=== PATIENT | female | born 1990 | race African-American/Black ===

== ENCOUNTER 2023-10-05 12:36 | Outpatient (CLI) | payer OTHER, SELFPAY ==
--- NOTE | ~2023-10-05 | US_ITS ---
EXAMINATION: US OB follow up DATE: 10/05/2023 13:19 INDICATION: Encounter for supervision of normal during third trimester. Assess amniotic flu id index and assess growth TECHNIQUE: Real-time ultrasound of the pelvis was performed. The interpreting radiologist was not pre sent for the study. COMPARISON: 06/21/2023 FINDINGS: There is a single living fetus in vertex presentation. The placenta is normal. heart rate is 1 30 beats per minute (bpm). The amniotic fluid index is 12.1 cm, which is normal. The following biometric data were obtained: BPD: 8.7 cm -> 35 weeks 0 days Head circumference: 31.2 cm -> 35 weeks 0 days Abdominal circumference: 30.8 cm -> 34 weeks 5 days Femur length: 6.9 cm -> 35 weeks 2 days These measurements are concordant. Head circumference to abdominal circumference ratio: 1.01 (normal range 0.93-1.11). Estimated weight: 2553 g (+/-) 382 g or 5 lbs. 10 oz. (+/-) 14 oz. IMPRESSION: 1. Single living fetus in vertex presentation with heart rate of 130 bpm. 2. Normal amniotic fluid index of 12.1 cm. 3. Estimated weight is 38th percentile by Hadlock criteria when 11/17/2023 is used as the estima nasra date of delivery (CRESCENCIO). Please correlate with clinical information or earlier ultrasounds for mos t accurate CRESCENCIO. Reviewed, dictated and finalized at location A. L [employer] IMPRESSION: 1. Single living fetus in vertex presentation with heart rate of 130 bpm. 2. Normal amniotic fluid index of 12.1 cm. 3. Estimated weight is 38th percentile by Hadlock criteria when 11/17/2023 is used as the estimated date of delivery (CRESCENCIO). Please correlate with clinica l information or earlier ultrasounds for most accurate CRESCENCIO.
== END 2023-10-05 12:37 | disposition home or self-care (01) ==
LOC: ANHIMG 12:39
PROVIDERS: Visit Provider Student in an Organized Health Care Education/Training Program
DX: Z34.90 Encounter for supervision of normal pregnancy, unspecified, unspecified trimester (principal); Z3A.00 Weeks of gestation of pregnancy not specified
CPT/HCPCS: 76816

== ENCOUNTER 2023-11-09 18:57 | Inpatient (IN) | payer OTHER, SELFPAY ==
[2023-11-09 19:15] VITALS: BP 118/73; PULSE 93
[2023-11-09 19:31] VITALS: BP 121/77; PULSE 83
--- NOTE | 2023-11-09 19:43 | WPDANESEPP ---
Anes - Eval Pre Procedure Procedure: labor epidural Date/Time: 11/09/23 19:43 Pre Op Diagnosis: IOL/Leaking Patient Data Age: 33 Gender: F Height: Weight: Last Vital Signs Pulse 83 11/09/23 19:31 BP 121/77 11/09/23 19:31 Allergies Allergy/AdvReac Type Severity Reaction Status Date / Time No Known Allergies Allergy Verified 11/08/23 09:22 Home Medications Medication Instructions Recorded Confirmed Type vits no.126-ferrous fum 1 tablet PO DAILY 11/08/23 11/08/23 History 28 mg iron-folic acid 800 mcg tablet (Classic ) Patient hx anesthesia problems: none Family hx anesthesia problems: none Results Review: All pre-operative results and documents have been reviewed as part of the pre-operative evaluation. [facility] Surgical History Surgical History H/O gynecological procedure mirena iud insertion - 08/17/2017 mirena removal 07/2022 Family History Family History Mother Breast cancer, Onset Age: 48 Social History Social History Smoking status: Never smoker Alcohol intake: never Substance use: never Substance use type: does not use Lack of Transportation: No Lack of Food: Never True Current Housing: I Have Housing Concerned About Future Housing: No Difficulty Paying Gas/Electric Bills: No Difficulty Paying for Meds: No Currently Unemployed: No Education: High School Diploma/GED Difficulty w/ Childcare or Family Care: No Living arrangements: with family Occupation/Education: occupation Gender identity (if verbalized by the patient): Female Sexual Orientation (if Verbalized by the Patient): Straight or Heterosexual Spiritual care concerns: No Exam Day of Procedure 11/09/23 19:43 Patient weight: obese Heart: regular rate and rhythm Lungs: normal air movement Airway: Mallampati scale Neurological: alert and oriented
[2023-11-09 19:44] VITALS: TEMP 36.4
[2023-11-09 19:58] VITALS: BMI 39.6
[2023-11-09 19:59] LABS: Basophils Percent Auto 0.2 % (0.2-1.2); Eosinophils Absolute Auto 0.1 K/mm3 (0-0.3); Eosinophils Percent Auto 0.9 % (0-4.4); Hematocrit 39.8 % (37.0-47.0); Hemoglobin 12.4 g/dL (12.0-15.0); Immature Granulocyte Absolute 0.05 K/mm3 (0.00-0.031); Immature Granulocyte Percent A 0.6 % (0-0.5); Lymphocytes Absolute Auto 3.33 K/mm3 (0.9-3.2); Lymphocytes Percent Auto 38.5 % (18.3-44.2); Mean Corpuscular HGB Conc 31.2 g/dl (32-36); Mean Corpuscular Hemoglobin 26.4 pg (26-34); Mean Corpuscular Volume 84.7 fl (80-100); Mean Platelet Volume 10.4 fl (7.4-10.4); Monocytes Absolute Auto 0.7 K/mm3 (0.1-0.6); Monocytes Percent Auto 8.1 % (2.6-8.5); Neutrophils Absolute Auto 4.5 K/mm3 (1.3-6.7); Neutrophils Percent Auto 51.7 % (45.5-73.1); Platelet Count Result 174 k/mm3 (150-375); Red Cell Distribution Width 15.8 % (11.5-14.5); White Blood Count 8.7 K/mm3 (4.5-10.0)
[2023-11-09] MEDS: LACTATED RINGERS 1,000 ML 125 ML IV CONT (20:15)
[2023-11-09] MEDS: AMPICILLIN 2 GM/NS 100 ML 2 GM/100 ML BAG IVPB (20:19)
[2023-11-09] MEDS: OXYTOCIN 30 UNITS/NS 500 ML 30 UNITS/500 ML BAG IV CONT (22:10)
[2023-11-09 22:12] VITALS: TEMP 35.8
[2023-11-09 23:45] VITALS: TEMP 36.6
[2023-11-09 23:46] VITALS: BP 103/56; PULSE 92
[2023-11-10] VITALS (281 sets, daily range): BP systolic 66–161; BP diastolic 27–120; PULSE 63–172; RESP 18; TEMP 36.1–36.9; O2SAT 79–100
[2023-11-10] MEDS: PHENYLEPHRINE 1,000 MCG/10 ML SYRINGE 100 MCG IV PUSH (00:42)
[2023-11-10] MEDS: AMPICILLIN 1 GM/NS 50 ML 1 GM/50 ML BAG IVPB ×3 (02:30→11:41)
[2023-11-10] MEDS: LACTATED RINGERS 1,000 ML 125 ML IV CONT ×2 (03:19→08:50)
--- NOTE | 2023-11-10 08:29 | WPDHPUPDATE1 ---
History and Physical Update Update Date/Time: 11/10/23 08:29 33-year-old at 40 weeks 4 days who presents with spontaneous rupture of membranes History and Physical has been reviewed, including an updated exam of the patient. There are NO changes in the patient's condition. Risks, benefits, and alternatives have been discussed and questions answered. Patient agrees to proceed with procedure. admit to L&D Routine admission orders labs reviewed Rh positive GBS positive, will initiate antibiotics Expectant management, will augment with Pitocin as needed Continuous external monitoring
[2023-11-10] MEDS: TERBUTALINE SULFATE 1 MG/ML VIAL 0.25 MG SUB-Q (08:57)
[2023-11-10 10:58] LABS: Rapid Plasma Reagin Non-Reactive (NonReactive)
[2023-11-10] MEDS: DEXTROSE 5%/LACTATED RINGERS 1,000 ML 999 ML (11:41)
[2023-11-10] MEDS: SODIUM CHLORIDE 0.9% IV 300 ML 600 ML I-UTERINE (12:15)
--- NOTE | 2023-11-10 15:10 | PM.OBPRVD ---
OB - Vaginal Delivery Note Procedure Delivery date: 11/10/23 Induction method: None Delivery augmentation: Pitocin Delivery monitor: External FHT and Internal Uterine Route of delivery: Episiotomy description: None Laceration Description: Periurethral Delivery repair: vicryl Specimen: No Quantitative Blood Loss (ml): 100 Anesthesia type: None Disposition: PACU Complications: No immediate complications Narrative: Patient pushed for an uncomplicated spontaneous vaginal delivery.The fetus was delivered atraumatically and placed on the maternal abdomen. A body cord was noted wrapped around the right leg. The cord was clamped and cut after 1 minute of life. The cord was double clamped and cut and a segment of cord was collected for cord gases. Cord blood was collected for blood type and Coomb's testing. The placenta delivered spontaneously and was noted to be intact. The perineum was inspected and noted to be intact.A periurethral laceration was noted to be bleeding. The laceration was repaired with 3-0 vicryl. Due to proximity to urethra and edema, will keep catheter in place. The uterus was firm and good hemostasis was noted. [place] Baby Date of : 11/10/23 Time of : 15:02 Weeks of gestation at delivery: 40 Infant gender: Male Weight (pounds): 7 Weight (ounces): 4 presentation: vertex position: Right Occiput Anterior Placenta delivery description: Spontaneous Cord Vessel Description: 3 Vessels, Around Body and Around Extremity score one minute: 8 score five minutes: 9 AMG Delivery Billing Delivery Delivery: Delivery Charge
[2023-11-10] MEDS: OXYTOCIN 30 UNITS/NS 500 ML 30 UNITS/500 ML BAG 125 UNITS IV CONT (15:34)
--- NOTE | 2023-11-10 17:45 | PC.NURSE ---
Patient transferred to post room #287 via wheelchair. Support person present. Oriented to unit, room, information board, rooming in, admission packet and security measures. Patient verbalizes understanding.
[2023-11-10] MEDS: IBUPROFEN 600 MG TABLET PO (20:38)
[2023-11-11] VITALS: BP 110/61; PULSE 94; RESP 18; TEMP 36.7; O2SAT 100
[2023-11-11 04:45] LABS: Hematocrit 33.8 % (37.0-47.0); Hemoglobin 10.6 g/dL (12.0-15.0)
[2023-11-11 08:00] VITALS: BP 114/69; PULSE 95; RESP 16; TEMP 37.4; O2SAT 100
--- NOTE | 2023-11-11 09:29 | P.PNOB_ITS ---
OB - PN: Subj Subjective Date/time seen: 11/11/23 09:29 Patient comments: no complaints, pain well controlled and tolerating diet [place] feeding status: exclusively breast feeding Narrative: patient doing well this AM. No complaints. Pain is well controlled. She reports minimal bleeding. She is tolerating PO. She denies N/V, fever, chills. OB - PN: Obj Data Labs 11/11/23 04:01 Labs: Laboratory Results - last 24 hr 11/09/23 11/11/23 19:40 04:01 Hgb 10.6 L Hct 33.8 L RPR Non-reactive OB - PN A/P Plan day: 1 Plan: routine care Comments: patient doing well H/H stable pt desires infant circ. maternal consent obtained. plan for circumcision continue routine care Time Spent With Patient Time: Total time spent is greater than 50% in coordination of care (as documented) at patient's floor/unit and/or counseling patient: Time with patient: less than 15 minutes Review of Systems Review of Systems: All systems reviewed & are unremarkable except as noted in HPI and below Exam Const: General: comfortable and no acute distress Resp: Effort & Inspection: normal respiratory effort Cardio: Rate: regular rate GI: GI Palp: Yes Soft to palpation and No Tenderness to palpation present (GI) Auscultation: normal bowel sounds Other: fundus firm and below umbilicus. Psych: Affect: normal affect
--- NOTE | 2023-11-11 12:49 | PM.OBDSVD ---
DS: Admitting Diagnosis Discharge Date 11/11/23 Admitting Diagnosis intrauterine at term spontaneous rupture of membranes DS: Discharge Diagnosis Discharge Diagnosis (1) Normal vaginal delivery: Code(s): O80 - Encounter for full-term uncomplicated delivery Status: Acute OB - DS: Summary OB Procedures : None OB Procedures Intrapartum: Spontaneous Vag Delivery OB Procedures: : None Peripartum Data Laceration Description: Periurethral Episiotomy description: None Status at Discharge Functional status at discharge: independent ambulation Overall status at discharge: patient is back to baseline Time Spent with Patient Time attestation: Total time spent providing and/or coordinating discharge services: Time spent: Less than 30 minutes Exam Const: General: comfortable and no acute distress Resp: Effort & Inspection: normal respiratory effort Auscultation: clear to auscultation bilaterally Cardio: Rate: regular rate GI: GI Palp: Yes Soft to palpation Auscultation: normal bowel sounds Other: Fundus firm below umbilicus Psych: Appearance: grossly normal Mental Status: mental status grossly normal Affect: normal affect DS: Data Data Completed and Pending Labs on day of discharge: Labs from last 24 hours 11/11/23 04:01 Hgb 10.6 L Hct 33.8 L Discharge Plan Discharge Attending physician on discharge: Harris Field Discharging Clinician: Harris Field Patient Disposition: Home, Self-Care Activity: as tolerated and pelvic rest Diet: regular Patient Instructions: Antibiotic Form, Vaginal Delivery (DC) Stand Alone Forms: General Discharge Information Follow-up/Referrals: Harris Field MD [Physician] - Discharge Medications: New acetaminophen 500 mg tablet 500 mg PO Q6H PRN (Reason: pain) Qty: 30 0RF ibuprofen 600 mg tablet 600 mg PO Q6H PRN (Reason: pain) Qty: 30 0RF Continued Classic 28 mg iron- 800 mcg Tablet 1 tablet PO DAILY Date of admission: 11/09/23 18:57 Primary Care Provider: PHYSICIAN,FUNERAL ATTENDANT Admitting Provider: Harris Field Attending physician on admission: Harris Field Condition: Stable
[2023-11-11 20:00] VITALS: BP 113/72; PULSE 87; RESP 18; TEMP 36.8; O2SAT 99
[2023-11-12 07:48] VITALS: BP 116/71; PULSE 76; RESP 20; TEMP 36.8; O2SAT 98
[2023-11-12] MEDS: BENZOCAINE 20% AER SPR (*SP) 56 GM CAN 1 SPRAY TOPICAL (10:23)
[2023-11-12] MEDS: MULTIVIT/MIN/PREN/FOL AC/IRON TABLET 1 TAB PO (10:24)
[2023-11-12] MEDS: WITCH HAZEL 40 PADS 1 PAD TOPICAL (10:24)
[2023-11-12] MEDS: DOCUSATE SODIUM 100 MG CAPSULE PO (10:24)
[2023-11-14 09:36] VITALS: BP 134/84; PULSE 65; RESP 18; TEMP 36.9; O2SAT 100
== END 2023-11-12 12:45 | disposition home or self-care (01) | DRG 560 ==
LOC: ANHLDR 11-10 09:07 → ANHOB2 11-10 17:55
PROVIDERS: Admitting Provider Student in an Organized Health Care Education/Training Program; Visit Provider Student in an Organized Health Care Education/Training Program
DX: O99.824 Streptococcus B carrier state complicating childbirth (principal); Z37.0 Single live birth; Z3A.40 40 weeks gestation of pregnancy; O69.82X0 Labor and delivery complicated by other cord entanglement, without compression, not applicable or unspecified; O71.82 Other specified trauma to perineum and vulva
CPT/HCPCS: 36415; 85014; 85018; 85025; 86592; 86850; 86900; 86901; A9270; J0290; J2371; J2590; J2795; J3105; J7030; J7120; J7121

== ENCOUNTER 2024-01-08 09:26 | Outpatient (CLI) | payer OTHER, SELFPAY ==
[2024-01-08 10:08] LABS: Beta HCG Quantitative < 2.39 mIU/ML
== END 2024-01-08 09:27 | disposition home or self-care (01) ==
PROVIDERS: Visit Provider Student in an Organized Health Care Education/Training Program
DX: Z30.431 Encounter for routine checking of intrauterine contraceptive device (principal)
CPT/HCPCS: 36415; 84702